=== PATIENT | female | born 1975 | race Caucasian/White ===

== ENCOUNTER 2017-02-18 15:57 | Emergency (ER) | payer MEDICAID ==
[2017-02-18] MEDS ORDERED: 0.9 % SODIUM CHLORIDE 1,000 ML BAG IV ONE (16:29)
[2017-02-18] MEDS ORDERED: ONDANSETRON HCL IV 4 MG/2 ML VIAL IVP ONE (16:29)
--- NOTE | 2017-02-18 16:35 | Emergency Department Record ---
History of Present Illness - General Chief complaint: Head Injury Stated complaint: HEAD INJURY Time Seen by Provider: 02/18/17 16:22 Source: Patient, Family Mode of Arrival: Ambulatory Limitations: No limitations - History of Present Illness Initial comments: The patient is here due to a head injury from a week ago. Her family member states she fell down a flight of steps a week ago and was seen at [facility]. She had a brain and cervical CT performed that was neg. Since per her family member she has been nauseated, slightly confused and having trouble walking. The patient is now here for further eval. There are no new problems. The patient does have a hx of a previous head injury and did have similar problems with confusion and trouble walking after that injury. Her actually states she was worse the last time. Additionally she does have chronic headaches. Per family she has been trying to find a Neurologist but has not been successful. MD Complaint: Head injury Onset/Timin -: Week(s) Loss of Consciousness: Unsure Place: Home Severity: Mild Associated Symptoms: Denies other symptoms - Related Data Home Medications Medication Instructions Recorded Confirmed Last Taken Duloxetine HCl [Cymbalta] 60 mg PO DAILY 02/18/17 02/18/17 02/17/17 Montelukast Sodium [Singulair] 10 mg PO DAILY 02/18/17 02/18/17 02/17/17 Naproxen [Naprosyn] 500 mg PO BID 02/18/17 02/18/17 02/17/17 Omeprazole 40 mg PO BID 02/18/17 02/18/17 02/17/17 Ondansetron [Zofran Odt] 4 mg PO Q8H 02/18/17 02/18/17 02/17/17 Topiramate [Topamax] 150 mg PO BID 02/18/17 02/18/17 02/17/17 Previous Rx's Medication Instructions Recorded Ondansetron [Zofran Odt] 4 mg SL .Q4-6H PRN #12 tab.rapdis 02/18/17 Allergies/Adverse reactions: Allergies Allergy/AdvReac Type Severity Reaction Status Date / Time codeine Allergy ITCHING Verified 02/18/17 16:22 Travel Screening - Travel/Exposure Within Last 30 Days Have you traveled within the last 30 days?: No - Travel/Exposure Within Last Year Have you traveled outside the [place] in the last year?: No - Additonal Travel Details Have you been exposed to anyone with a communicable illness?: No - Travel Symptoms Symptom Screening: None Review of Systems Constitutional: Denies: Chills, Fever Eyes: Denies: Eye discharge ENT: Denies: Congestion Respiratory: Denies: Cough, Dyspnea Past Medical History - SOCIAL HISTORY Smoking Status: Current every day smoker Alcohol Use: Rare Drug Use: Rare Drug Use Detail:: Marijuana - RESPIRATORY Hx Respiratory Disorders: Yes Hx Asthma: Yes - CARDIOVASCULAR Hx Cardio Disorders: Yes - NEURO Hx Neuro Disorders: Yes Hx Headaches: Yes Hx Seizures: Yes (after first head injury) Comment:: previous head injury 10/2014 - GI Hx GI Disorders: Yes Hx Reflux: Yes - Hx Genitourinary Disorders: No - ENDOCRINE Hx Endocrine Disorders: No Hx Diabetes: No Hx Thyroid Disease: No - MUSCULOSKELETAL Hx Musculoskeletal Disorders: No - PSYCH Hx Psych Problems: Yes - HEMATOLOGY/ONCOLOGY Hx Hematology/Oncology Disorders: No Family Medical History Any Significant Family History?: No Physical Exam - General General Appearance: Alert, Oriented x3, Cooperative, No acute distress - Head Head exam: Atraumatic, Normocephalic, Normal inspection - Eye Eye exam: Normal appearance, PERRL, EOMI - Neck Neck exam: Normal inspection, Full ROM. negative: Tenderness - Respiratory Respiratory exam: Normal lung sounds bilaterally. negative: Respiratory distress - Cardiovascular Cardiovascular Exam: Regular rate, Normal rhythm, Normal heart sounds - GI/Abdominal GI/Abdominal exam: Soft, Normal bowel sounds, Tenderness (There is mild tenderness diffusely that the patient states is from vomiting.). negative: Guarding, Organomegaly, Rebound, Rigid - Extremities Extremities exam: Normal inspection, Full ROM, Normal capillary refill. negative: Tenderness - Neurological Neurological exam: Alert, Normal gait, Oriented X3 (The patient is oriented to name, hospital, and age but is not sure of the day of the week.), Other (Her speech is clear and without slurring.). negative: Abnormal gait, Altered, Motor sensory deficit - Psychiatric Psychiatric exam: Depressed, Flat affect Course Vital Signs 02/18/17 16:03 Temperature 98.2 F Pulse Rate 107 H Respiratory 16 Rate Blood Pressure 161/95 Pulse Ox 97 - Reevaluation(s) Reevaluation #1: The patient is doing much better at this time. 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 She is presently texting on her phone and her speech is very clear. She denies any CP, neck pain, AP, or nausea presently. The patient has an appointment with her PCP in 5 days and is encouraged to keep it. 02/18/17 17:36 Medical Decision Making - Data Complexity MDM Data: Labs Ordered and/or Reviewed, X-Ray Ordered and/or Reviewed - Lab Data Result diagrams: 02/18/17 16:40 02/18/17 16:40 - Radiology Data Radiology results: Report reviewed (Head CT: Neg.) Disposition Disposition: Discharge Clinical Impression: Post-concussion syndrome Disposition: Home, Self-Care Condition: (2) Stable Instructions: Post Concussion Syndrome (ED) Additional Instructions: Please take Tylenol or Motrin for pain and use the Zofran if needed. Please see your PCP next week as planned. Return to the ER for any new or changing symptoms. Prescriptions: Ondansetron [Zofran Odt] 4 mg SL .Q4-6H PRN #12 tab.rapdis PRN Reason: Nausea Forms: Patient Portal Access Time of Disposition: 17:39 Quality - Quality Measures Quality Measures: N/A - Blood Pressure Screening View Details: Yes Does Patient Have Any of the Following: No Blood Pressure Classification: Hypertensive Reading Systolic Measurement: 155 Diastolic Measurement: 93 Screening for High Blood Pressure: < Pre-Hypertensive BP, F/U Documented > [ [id number]] Pre-Hypertensive Follow-up Interventions: Referral to alternative/primary care provider.
[2017-02-18 16:50] LABS: BASO % 0.2 % (0-6); EOS % 0.4 % (0-6); HEMATOCRIT 44.7 % (35.0-47.0); HEMOGLOBIN 14.6 gm/dl (11.6-16.0); LYMPH % 19.6 % (16-45); MEAN CELL VOLUME 93.3 fl (81-97); MEAN CORPUSCULAR HEMOGLOBIN 30.5 pg (27-33); MEAN CORPUSCULAR HGB CONC 32.7 g/dl (32-36); MEAN PLATELET VOLUME 9.6 fl (7.4-10.4); MONO % 6.8 % (0-9); PLATELET COUNT 414 K/uL (130-400); RED BLOOD COUNT 4.79 M/uL (3.80-5.40); RED CELL DISTRIBUTION WIDTH 14.9 % (11.5-14.5)
[2017-02-18 17:03] LABS: BLOOD UREA NITROGEN 7 mg/dL (6-20)
[2017-02-18 17:04] LABS: CREATININE 0.7 mg/dL (0.5-0.9); EST GLOMERULAR FILTRATION RATE > 60 mL/min; TOTAL PROTEIN 7.7 g/dL (6.6-8.7)
[2017-02-18 17:06] LABS: GLUCOSE,RANDOM 97 mg/dL (74-109)
[2017-02-18 17:09] LABS: ALB/GLOB RATIO 1.4 (1.1-1.8); ALBUMIN 4.5 g/dL (4.0-5.0); ALKALINE PHOSPHATASE 72 U/L (35-104); ALT/SGPT 20 U/L (<33); AST/SGOT 14 U/L (10.0-35.0)
[2017-02-18 17:21] LABS: URINE APPEARANCE SL CLOUDY; URINE BILIRUBIN NEGATIVE (NEGATIVE); URINE BLOOD TRACE-I (NEGATIVE); URINE COLOR YELLOW; URINE GLUCOSE (UA) NEGATIVE (NEGATIVE); URINE KETONE NEGATIVE (NEGATIVE); URINE LEUKOCYTE ESTERASE NEGATIVE (NEGATIVE); URINE NITRITE NEGATIVE (NEGATIVE); URINE PROTEIN NEGATIVE (NEGATIVE); URINE UROBILINOGEN 0.2 E.U./dL (0.20 - 1.00)
[2017-02-18 17:26] LABS: AMPHETAMINE SCREEN URINE NOT DETECTED; BARBITURATE SCREEN URINE NOT DETECTED; BENZODIAZEPINE SCREEN URINE NOT DETECTED; COCAINE SCREEN URINE NOT DETECTED; METHADONE SCREEN URINE NOT DETECTED; METHAMPHETAMINE SCREEN NOT DETECTED; OPIATE SCREEN URINE NOT DETECTED; OXYCODONE SCREEN URINE NOT DETECTED; PHENCYCLIDINE SCREEN URINE NOT DETECTED; PROPOXYPHENE SCREEN URINE NOT DETECTED; THC SCREEN URINE DETECTED; TRICYCLIC ANTIDEPRESSANT SCRN NOT DETECTED
[2017-02-18 17:28] LABS: HCG,QUALITATIVE URINE NEGATIVE (NEGATIVE); URINE AMORPHOUS SEDIMENT 2+; URINE RBC 0 - 2 (NONE SEEN); URINE WBC NONE SEEN (0-2/hpf)
--- NOTE | 2017-02-19 20:14 | CT SCAN REPORT ---
EXAM: CT SCAN HEAD WO CONTRAST HISTORY: PATIENT HAS HISTORY OF TRAUMA. TECHNIQUE: Serial axial CT scan of the head was performed at 2.5 mm intervals from the base of the skull to the apex without the use of intravenous contrast. COMPARISON: No comparison CT's are available. FINDINGS: The ventricles, cisterns, sulci appear within normal limits for size , shape, and attenuation. There is no mass or mass effect. The mancini and white differentiation appear within normal limits. There is no CT evidence of intra or extraaxial fluid collection to suggest bleeding. The bone windows demonstrate no CT evidence of a fracture or dislocation of the skull. Paranasal sinuses are unremarkable. IMPRESSION: NO CT EVIDENCE OF AN ACUTE INTRACRANIAL PROCESS. JOB NUMBER: [id number] [facility]
== END 2017-02-18 17:47 | disposition home or self-care (01) ==
LOC: ER 15:57
DX: F07.81 Postconcussional syndrome (principal); G44.319 Acute post-traumatic headache, not intractable; R11.0 Nausea; R41.0 Disorientation, unspecified
CPT/HCPCS: 99284 ×2; 96374; 85025; 80053; 81001; 81025; 80305; 70450; J2405; J7030